=== PATIENT | female | born 1975 | race African-American/Black ===

== ENCOUNTER 2017-03-11 14:01 | Emergency (ER) | payer MEDICARE ==
[2015-06-06 09:41] VITALS: BMI 46.7
[~2017-03-11 14:01] MED LIST: AMBIEN10 MG PO; BENZTROPINE MESY2 MG PO; CELEXA40 MG PO; CHLORPROMAZINE200 MG PO; CLONAZEPAM1 MG/TAB PO; CLONAZEPAM2 MG/TAB PO; ENULOSE10 G/15 ML PO; HALDOL5 MG PO; INVEGA6 MG/BLIST PO; K-DUR20 MEQ PO; LASIX20 MG; LATUDA80 MG PO; LITHIUM CARBON150 MG PO; LITHIUM CARBON300 MG PO; NEURONTIN 300300 MG PO; NICODERM C1 PATCH .3 TRANSDERM; OXYCONTIN10 MG PO; TOPAMAX200 MG PO; TYLENOL W/CODEI1 TAB PO; XANAX1 MG PO; XANAX2 MG PO
[2017-03-11 14:33] LABS: UDS - AMPHET POSITIVE QUAL (NEGATIVE); UDS - BARB NEGATIVE QUAL (NEGATIVE); UDS - BENZO NEGATIVE QUAL (NEGATIVE); UDS - COCAINE POSITIVE QUAL (NEGATIVE); UDS - OPIATE NEGATIVE QUAL (NEGATIVE); UDS - PCP NEGATIVE QUAL (NEGATIVE); UDS - THC NEGATIVE QUAL (NEGATIVE)
[2017-03-11 14:43] LABS: APPEARANCE CLEAR (CLEAR); BILIRUBIN NEGATIVE (NEGATIVE); COLOR YELLOW (YELLOW); GLUCOSE NEGATIVE (NEGATIVE); KETONE NEGATIVE (NEGATIVE); NITRITE NEGATIVE (NEGATIVE); PROTEIN NEGATIVE (NEGATIVE); UROBILINOGEN NORMAL (NORMAL)
[2017-03-11 14:44] LABS: BACTERIA MODERATE /hpf (NONE SEEN); RED CELLS - URINE 0-5 /hpf (0-5)
[2017-03-11 15:01] LABS: BASOPHILS 0.2 % (0-2); EOSINOPHILS 1.5 % (0-7); HEMATOCRIT 40.7 % (36.0-48.0); HEMOGLOBIN 13.7 g/dL (12-16); IMMATURE GRANULOCYTES 0.2 % (0-5); LYMPHOCYTES 34.2 % (15-50); MCH 29.3 pg (26.0-34.0); MCHC 33.7 g/dL (31.0-37.0); MCV 87.2 fL (80.0-100.0); MEAN PLATELET VOLUME 9.7 fL (7.4-10.4); MONOCYTES 3.2 % (2-11); NEUTROPHILS 60.7 % (40-80); PLATELET COUNT 263 10x3/uL (130-400); RBC 4.67 10x6/uL (4.00-5.40); RDW 14.7 % (11.5-14.5); WBC 8.5 10x3/uL (4.8-10.8)
[2017-03-11 15:24] LABS: ALBUMIN 3.3 g/dL (3.4-5.0); ALKALINE PHOSPHATASE 118 U/L (46-116); ALT (SGPT) 36 U/L (10-68); BILIRUBIN - TOTAL 0.16 mg/dL (0.2-1.3); CALC OSMOLALITY 275 mosm/kg (275-300); CALCIUM 8.8 mg/dL (8.5-10.1); CARBON DIOXIDE 25.2 mmol/L (21.0-32.0); CHLORIDE - SERUM 105 mmol/L (98-107); CREATININE - SERUM 0.8 mg/dL (0.6-1.3); POTASSIUM - SERUM 4.4 mmol/L (3.5-5.1); PROTEIN - SERUM 6.9 g/dL (6.4-8.2); SODIUM 138 mmol/L (136-145); UREA NITROGEN 12 mg/dL (7-18); eGFR NON AFRICAN AMERICAN 84 mL/min (90-120)
[2017-03-11 15:26] LABS: GLUCOSE 96 mg/dL (74-106)
[2017-03-11 15:27] LABS: LITHIUM 0.03 mmol/L (0.60-1.20); SALICYLATES 2.9 mg/dL (2.8-20.0)
[2017-03-11 22:00] LABS: HCG SERUM NEGATIVE (NEGATIVE)
== END 2017-03-11 23:39 | disposition short-term general hospital (02) ==
LOC: D.ER 14:01
PROVIDERS: Family Medicine
DX: F15.10 Other stimulant abuse, uncomplicated (principal); F14.10 Cocaine abuse, uncomplicated; R45.851 Suicidal ideations; F17.200 Nicotine dependence, unspecified, uncomplicated